=== PATIENT | male | born 1935 | race Caucasian/White ===

== ENCOUNTER 2017-06-30 18:56 | Emergency (ER) | payer MEDICARE, MEDICAID ==
[~2017-06-30] VITALS: Ht 162.6 cm; Wt 72.7 kg
[~2017-06-30 18:56] MED LIST: CAPT50TA; GLYB5TAB; METF500T4
[2017-06-30 19:12] VITALS: Ht 162.6 cm; Wt 72.7 kg
[2017-06-30 19:43] VITALS: RESP 22; TEMP 98
[2017-06-30] MEDS ORDERED: METF500T4 PO (20:39)
[2017-06-30] MEDS ORDERED: LOSA100T7 PO (20:40)
--- NOTE | 2017-06-30 20:44 | ERD ---
ER Documentation Chief Complaint Date/Time DATE: 06/30/17 TIME: 20:44 Chief Complaint BIBA RA39,gen weakness,near syncope,BS 236 HPI 81-year-old male history of diabetes and hypertension presents to the ED complaining of a three-day history decreased oral intake, nonproductive cough and malaise and today with increasing weakness prior to arrival of an episode of dizziness and generalized weakness. Prehospital blood sugar was 236 mg/dL. Patient states he took some cough syrup and afterwards the symptoms began. He denies headache, visual changes, focal weakness or numbness. No chest pain, palpitations or shortness of breath. Denies abdominal pain, nausea, vomiting, diarrhea or constipation. No dysuria, polyuria, hematuria or flank pain. No fevers or chills. ROS All systems reviewed and are negative except as per history of present illness. Medications Home Meds Reported Medications Losartan Potassium* (Losartan Potassium*) 100 Mg Tablet, 100 MG PO DAILY, TAB 06/30/17 Metformin Hcl* (Metformin Hcl*) 500 Mg Tablet, 500 MG PO WITH BREAKFAST DINNE, # 60 TAB 06/30/17 Discontinued Reported Medications Metformin Hcl* (Metformin Hcl*) 500 Mg Tablet 01/03/10 Glyburide* (Diabeta*) 5 Mg Tablet 01/03/10 Captopril* (Capoten*) 50 Mg Tablet 01/03/10 Allergies Allergies: Coded Allergies: No Known Allergy (Verified , 06/30/17) PMhx/Soc Reviewed in chart. As per HPI. History of Surgery: Yes (HERNIA (GROIN)) Hx Neurological Disorder: No Hx Respiratory Disorders: No Hx Cardiac Disorders: Yes (HTN) Hx Miscellaneous Medical Probl: Yes (DIABETIC) Hx Alcohol Use: No Hx Substance Use: No Hx Tobacco Use: No Smoking Status: Never smoker FmHx No stroke or cancer Physical Exam Vitals Vital Signs Date Time Temp Pulse Resp B/P Pulse Ox O2 Delivery O2 Flow Rate FiO2 06/30/17 22:42 82 174/87 98 Room Air 06/30/17 21:02 Nasal Cannula 2 06/30/17 20:06 Nasal Cannula 2.0 06/30/17 19:43 98.0 87 22 152/82 97 Nasal Cannula 2.0 06/30/17 19:12 98.2 88 18 127/66 89 Physical Exam Const: Alert, elderly, NAD Head: Atraumatic Eyes: Normal Conjunctiva. YASH, EOMI ENT: Normal External Ears, Nose and Mouth. Neck: Full range of motion. Nontender, No meningismus. No JVD. Resp: Clear to auscultation bilaterally Cardio: Regular rate and rhythm, no murmurs Abd: Soft, non tender, non distended. Normal bowel sounds Skin: No petechiae or rashes Back: No midline or flank tenderness. Pulses 4+ in all 4 extremities. Ext: No cyanosis, or edema. No calf swelling or tenderness. Neur: Awake and alert. CN II-XII intact. Motor strength 4/4 in all 4 extremities. Normal gait. Psych: Cooperative. Normal Mood and Affect Result Diagram: 06/30/17204806/30/172048 Results 24 hrs Laboratory Tests Test 06/30/17 20:49 06/30/17 21:20 06/30/17 22:02 White Blood Count 10.910^3/ul Red Blood Count 4.1410^6/ul Hemoglobin 12.1g/dl Hematocrit 37.8% Mean Corpuscular Volume 91.3fl Mean Corpuscular Hemoglobin 29.2pg Mean Corpuscular Hemoglobin Concent 32.0g/dl Red Cell Distribution Width 13.2% Platelet Count 67356^3/UL Mean Platelet Volume 9.8fl Neutrophils % 75.4% Lymphocytes % 17.0% Monocytes % 6.7% Eosinophils % 0.3% Basophils % 0.2% Nucleated Red Blood Cells % 0.0/100WBC Neutrophils # 8.210^3/ul Lymphocytes # 1.910^3/ul Monocytes # 0.710^3/ul Eosinophils # 0.010^3/ul Basophils # 0.010^3/ul Nucleated Red Blood Cells # 0.010^3/ul Sodium Level 141mmol/L Potassium Level 4.7mmol/L Chloride Level 106mmol/L Carbon Dioxide Level 25mmol/L Anion Gap 15 Blood Urea Nitrogen 38mg/dl Creatinine 1.51mg/dl Glucose Level 194mg/dl Calcium Level 8.8mg/dl Total Bilirubin 0.2mg/dl Direct Bilirubin 0.00mg/dl Indirect Bilirubin 0.2mg/dl Aspartate Amino Transf (AST/SGOT) 18IU/L Alanine Aminotransferase (ALT/SGPT) 33IU/L Alkaline Phosphatase 93IU/L Troponin I < 0.012ng/ml Total Protein 7.2g/dl Albumin 3.8g/dl Globulin 3.40g/dl Albumin/Globulin Ratio 1.11 Urine Color YELLOW Urine Clarity CLEAR Urine pH 5.0 Urine Specific [place] 1.016 Urine Ketones NEGATIVEmg/dL Urine Nitrite NEGATIVEmg/dL Urine Bilirubin NEGATIVEmg/dL Urine Urobilinogen 1+mg/dL Urine Leukocyte Esterase NEGATIVELeu/ul Urine Hemoglobin NEGATIVEmg/dL Urine Glucose 1+mg/dL Urine Total Protein NEGATIVEmg/dl Bedside Glucose 169mg/dL Current Medications Medications (Trade) Dose Ordered Sig/Nadya Route PRN Reason Start Time Stop Time Status Last Admin Dose Admin Sodium Chloride (NS) 500 ml @ 500 mls/hr Q1H STAT IV 06/30/17 21:53 06/30/17 22:52 DC EKG: Time: 21:21. Sinus rhythm. Ventricular rate 88, normal ND and QRS intervals. No acute ST segment elevation or depression. No axis deviation or ectopy. EP Impression: Normal EKG IMAGING: PROCEDURE: XR Chest. CLINICAL INDICATION: Weakness. TECHNIQUE: Single frontal chest x-ray. COMPARISON: 10/25/2009 FINDINGS: Heart is enlarged. There are atherosclerotic calcifications of the aortic knob.. There is no congestive heart failure.. No focal infiltrate is seen. There is minimal bibasilar atelectasis. There is no pleural effusion. There is no pneumothorax. There are degenerative changes of the thoracic spine right shoulder.. IMPRESSION: Cardiomegaly. Minimal bibasilar atelectasis. RPTAT: HMVK .Galo Zurita MD, Date Time Electronically viewed and signed by .Galo Zurita MD, on 06/30/2017 21:06 .K/ PROCEDURE: CT Brain without contrast. CLINICAL INDICATION: Weakness TECHNIQUE: A CT of the brain was performed utilizing axial sections from the skull base through the vertex without contrast. Multiplanar re-formations were generated. Images were reviewed on a high-resolution PACS workstation. CTDIvol: 44.19 mGy. DLP: 720.23 mGy-cm. One or more of the following dose reduction techniques were used: - Automated exposure control. - Adjustment of the mA and/or kV according to patient size. - Use of iterative reconstruction technique. COMPARISON: 01/03/2010 FINDINGS: There is mild to moderate generalized volume loss. No hydrocephalus is seen. There is no mass effect. No acute intracranial hemorrhage is identified. There is no extra-axial collection. No CT evidence of acute infarction is identified. A small chronic right frontal lobe infarction is identified. There is patchy low attenuation in the supratentorial white matter, a nonspecific finding which most likely represents the sequela of moderate to severe chronic microvascular ischemic disease. There are mild atherosclerotic arterial calcifications. There is mild mucosal disease in the paranasal sinuses. The visualized mastoid air cells are clear. The ossesous structures are unremarkable. The extracranial soft tissues are unremarkable. IMPRESSION: 1. No acute intracranial pathology. 2. Mild to moderate generalized volume loss. 3. Moderate to severe chronic microvascular ischemic changes. 4. Small chronic right frontal lobe infarction. 5. Atherosclerotic arterial calcifications. RPTAT: HTAR .Will Dee MD, MD Date Time Electronically viewed and signed by .Will Dee MD, MD on 06/30/2017 21:07 .R/ Procedures/MDM DOCUMENTS REVIEWED: ED nurse, prior ED, prior records ED COURSE: Normal saline 1 L which was begun prior to arrival. REEXAMINATION/REEVALUATION: Time: 22:50. Doing well. Back to baseline. A symptom matter asymptomatic and wants to go home. MEDICAL DECISION MAKIN-year-old male history of diabetes and hypertension presents to the ED complaining of a three-day history decreased oral intake, nonproductive cough and malaise and today with increasing weakness prior to arrival of an episode of dizziness and generalized weakness. No focal neurologic deficit or symptoms consistent with CVA or TIA. CT findings as above reveals a prior CVA but no acute bleed, infarct, mass or hydrocephalus. Renal insufficiency likely secondary to dehydration. No evidence of urinary retention or urinary tract infection. No vertiginous symptoms. No acute electrolyte abnormalities or anemia. No chest pain, ischemic EKG changes, elevated troponin or cardiac dysrhythmia. 3 day history of nonspecific URI symptoms and cough but no radiographic evidence of pneumonia or congestive heart failure. If symptoms continue further evaluation including thyroid function testing should be considered. Stable for discharge with precautionary instructions and outpatient follow-up as counseled. Counseled patient and family regarding diagnostic workup, diagnosis and need for followup. Understands to return to ED if symptoms recur, worsen or any other concerns. Departure Diagnosis: Primary Impression: Weakness Additional Impressions: Dehydration Renal insufficiency Diabetes mellitus Diabetes mellitus type: type 2 Diabetes mellitus complication status: without complication Diabetes mellitus terminal operations supervisor insulin use: without terminal operations supervisor use Qualified Code: E11.9 - Type 2 diabetes mellitus without complication , without long-term current use of insulin Condition: Stable (Improved) BHAVANI KINSEY MD Jun 30, 2017 20:44
--- NOTE | 2017-06-30 21:06 | RADRPT ---
PROCEDURE: XR Chest. CLINICAL INDICATION: Weakness. TECHNIQUE: Single frontal chest x-ray. COMPARISON: 10/25/2009 FINDINGS: Heart is enlarged. There are atherosclerotic calcifications of the aortic knob.. There is no conges tive heart failure.. No focal infiltrate is seen. There is minimal bibasilar atelectasis. There is n o pleural effusion. There is no pneumothorax. There are degenerative changes of the thoracic spine right shoulder.. IMPRESSION: Cardiomegaly. Minimal bibasilar atelectasis. RPTAT: HMVK .Galo Zurita MD, Date Time Electronically viewed and signed by .Galo Zurita MD, on 06/30/2017 21:06 .K/
--- NOTE | 2017-06-30 21:07 | RADRPT ---
PROCEDURE: CT Brain without contrast. CLINICAL INDICATION: Weakness TECHNIQUE: A CT of the brain was performed utilizing axial sections from the skull base through th e vertex without contrast. Multiplanar re-formations were generated. Images were reviewed on a high- resolution PACS workstation. CTDIvol: 44.19 mGy. DLP: 720.23 mGy-cm. One or more of the following dose reduction techniques were used: - Automated exposure control. - Adjustment of the mA and/or kV according to patient size. - Use of iterative reconstruction technique. COMPARISON: 01/03/2010 FINDINGS: There is mild to moderate generalized volume loss. No hydrocephalus is seen. There is no mass effec t. No acute intracranial hemorrhage is identified. There is no extra-axial collection. No CT eviden ce of acute infarction is identified. A small chronic right frontal lobe infarction is identified. T here is patchy low attenuation in the supratentorial white matter, a nonspecific finding which most likely represents the sequela of moderate to severe chronic microvascular ischemic disease. There a re mild atherosclerotic arterial calcifications. There is mild mucosal disease in the paranasal sinuses. The visualized mastoid air cells are clear. The ossesous structures are unremarkable. The extracranial soft tissues are unremarkable. IMPRESSION: 1. No acute intracranial pathology. 2. Mild to moderate generalized volume loss. 3. Moderate to severe chronic microvascular ischemic changes. 4. Small chronic right frontal lobe infarction. 5. Atherosclerotic arterial calcifications. RPTAT: HTAR .Will Dee MD, Date Time Electronically viewed and signed by .Will Dee MD, MD on 06/30/2017 21:07 .R/
[2017-06-30 21:13] LABS: BASOPHILS % 0.2 % (0.0-2.0); EOSINOPHILS % 0.3 % (0.0-7.0); HEMATOCRIT 37.8 % (42.0-52.0); HEMOGLOBIN 12.1 g/dl (14.0-18.0); LYMPHOCYTES # 1.9 10^3/ul (0.8-2.9); MEAN CORPUSCULAR HEMOGLOBIN 29.2 pg (29.0-33.0); MEAN CORPUSCULAR VOLUME 91.3 fl (82.0-101.0); MEAN PLATELET VOLUME 9.8 fl (7.4-10.4); MONOCYTE # 0.7 10^3/ul (0.3-0.9); MONOCYTES % 6.7 % (0.0-11.0); NEUTROPHIL # 8.2 10^3/ul (1.6-7.5); NEUTROPHILS % 75.4 % (39.0-77.0); PLATELET COUNT 261 10^3/UL (140-415); RED BLOOD COUNT 4.14 10^6/ul (4.70-6.10); RED CELL DISTRIBUTION WIDTH 13.2 % (11.5-14.5); WHITE BLOOD COUNT 10.9 10^3/ul (4.8-10.8)
[2017-06-30 21:30] LABS: ALANINE AMINOTRANSFERASE 33 IU/L (13-69); ALBUMIN 3.8 g/dl (3.3-4.9); ALBUMIN/GLOBULIN RATIO 1.11; ALKALINE PHOSPHATASE 93 IU/L (42-121); ANION GAP 15 (8-16); ASPARTATE AMINO TRANSFERASE 18 IU/L (15-46); BILIRUBIN,INDIRECT 0.2 mg/dl (0-1.1); BILIRUBIN,TOTAL 0.2 mg/dl (0.2-1.3); BLOOD UREA NITROGEN 38 mg/dl (7-20); CALCIUM 8.8 mg/dl (8.4-10.2); CARBON DIOXIDE 25 mmol/L (21-31); CHLORIDE 106 mmol/L (97-110); CREATININE 1.51 mg/dl (0.61-1.24); GLUCOSE 194 mg/dl (70-220); POTASSIUM 4.7 mmol/L (3.5-5.1); SODIUM 141 mmol/L (135-144); TOTAL PROTEIN 7.2 g/dl (6.1-8.1)
[2017-06-30 21:42] LABS: TROPONIN-I < 0.012 ng/ml (0.00-0.12)
[2017-06-30 21:45] LABS: ADD UMIC NO; UR ASCORBIC ACID NEGATIVE (NEGATIVE); UR BILIRUBIN (Dip) NEGATIVE (NEGATIVE); UR BLOOD (Dip) NEGATIVE (NEGATIVE); UR CLARITY CLEAR (CLEAR); UR COLOR YELLOW (YELLOW); UR GLUCOSE (Dip) 1+ mg/dL (NEGATIVE); UR KETONES (Dip) NEGATIVE (NEGATIVE); UR LEUKOCYTE ESTERASE (Dip) NEGATIVE Leu/ul (NEGATIVE); UR NITRITE (Dip) NEGATIVE (NEGATIVE); UR SPECIFIC GRAVITY (Dip) 1.016 (1.003-1.030); UR TOTAL PROTEIN (Dip) NEGATIVE (NEGATIVE); UR UROBILINOGEN (Dip) 1+ mg/dL (NEGATIVE)
[2017-06-30] MEDS ORDERED: SOD CHLORIDE 0.9% 500 ML IV STA (21:53)
[2017-06-30 22:42] VITALS: BP 174/87; PULSE 82
== END 2017-06-30 23:31 | disposition home or self-care (01) ==
LOC: E/R 18:56
DX: R53.1 Weakness (principal); E86.0 Dehydration; N28.9 Disorder of kidney and ureter, unspecified; E11.9 Type 2 diabetes mellitus without complications; I10 Essential (primary) hypertension; R93.0 Abnormal findings on diagnostic imaging of skull and head, not elsewhere classified; Z79.84 Long term (current) use of oral hypoglycemic drugs
CPT/HCPCS: 70450; 71010; 80053; 81003; 82962; 84484; 85025; 93005; 99285; J7040

== ENCOUNTER 2018-01-15 01:50 | Emergency (ER) | END 2018-01-15 02:53 | disposition home or self-care (01) ==

== ENCOUNTER 2018-01-20 12:25 | Inpatient (IN) | END 2018-01-30 15:50 | disposition home or self-care (01) | DRG 312 ==